=== PATIENT | female | born 1945 | race Two or more races ===

== ENCOUNTER 2020-12-25 16:50 | Emergency (ER) | payer OTHER ==
[~2020-12-25] VITALS: Ht 154.9 cm; Wt 59.4 kg
[2020-12-25] MEDS ORDERED: LEVSIN/SL0.125 MG SL (19:37)
[2020-12-25] MEDS ORDERED: FLAGYL500MG PO (19:37)
[2020-12-25] MEDS ORDERED: PROTONIX40 MG PO (19:37)
[2020-12-25] MEDS ORDERED: CIPRO500 MG PO (19:37)
== END 2020-12-25 21:48 | disposition home or self-care (01) ==
LOC: ER 16:50
DX: K57.32 Diverticulitis of large intestine without perforation or abscess without bleeding (principal); R10.814 Left lower quadrant abdominal tenderness; Z95.0 Presence of cardiac pacemaker

== ENCOUNTER 2021-02-07 06:10 | Day surgery (SDC) | payer OTHER ==
[~2021-02-07 06:10] MED LIST: CIPRO500 MG PO; FLAGYL500MG PO; LEVSIN/SL0.125 MG SL; PROTONIX40 MG PO
== END 2021-02-07 11:30 | disposition home or self-care (01) ==
LOC: AMB-ENDOS 06:10
PROVIDERS: ATTEND Colon & Rectal Surgery
DX: D12.5 Benign neoplasm of sigmoid colon (principal); K64.0 First degree hemorrhoids; Z20.822 Contact with and (suspected) exposure to COVID-19

== ENCOUNTER 2021-07-25 11:00 | Inpatient (IN) | payer OTHER ==
[~2021-07-25] VITALS: Ht 152.4 cm; Wt 54.4 kg
[2021-07-25] MEDS ORDERED: ATORVASTATIN CA10 MG PO (12:14)
[2021-07-25] MEDS ORDERED: AVALIDE 300-121 EACH PO (12:14)
[2021-07-25] MEDS ORDERED: TOPROL XL100 M1 PO (12:14)
[2021-07-25] MEDS ORDERED: NORVASC5 MG PO (12:15)
[2021-07-25] MEDS ORDERED: RESTORIL15 MG PO (12:15)
[2021-07-25] MEDS ORDERED: SYNTHROID112 MCG PO (12:16)
[2021-07-25] MEDS ORDERED: TRANXENE T-TAB7.5 MG PO (12:16)
== END 2021-08-01 16:44 | disposition home or self-care (01) | DRG 330 ==
LOC: SURG 07-29 05:15 → O/R 07-29 05:15 → SURH 07-29 10:24 → SURG 07-29 13:56 → SURH 07-29 18:30 → SURG 08-01 16:44
PROVIDERS: ADMIT Colon & Rectal Surgery; ATTEND Colon & Rectal Surgery
PROC: 0DTN4ZZ Resection of Sigmoid Colon, Percutaneous Endoscopic Approach (ICD-10-PCS; 2021-07-29)
PROC: 0DBP4ZZ Excision of Rectum, Percutaneous Endoscopic Approach (ICD-10-PCS; principal; 2021-07-29 18:30)
DX: K57.20 Diverticulitis of large intestine with perforation and abscess without bleeding (principal); K92.1 Melena; I11.9 Hypertensive heart disease without heart failure; E03.9 Hypothyroidism, unspecified; E78.5 Hyperlipidemia, unspecified; Z95.0 Presence of cardiac pacemaker; G30.0 Alzheimer's disease with early onset; F02.80 Dementia in other diseases classified elsewhere, unspecified severity, without behavioral disturbance, psychotic disturbance, mood disturbance, and anxiety

== ENCOUNTER 2024-08-10 07:33 | Inpatient (IN) | payer OTHER ==
[2024-08-02 10:14] LABS: HEMATOCRIT 43.4 % (36.0-45.00); MEAN CELL VOLUME 89.6 fL (80.00-100.00); MEAN CORPUSCULAR HEMOGLOBIN 30.8 pg (27.00-32.0); MEAN CORPUSCULAR HGB CONC 34.4 g/dl (32.0-36.0); PLATELET COUNT 154 K/uL (150-450); RED BLOOD COUNT 4.85 M/uL (4.00-6.00); RED CELL DISTRIBUTION WIDTH 13.8 % (11.5-14.5)
[2024-08-02 11:04] LABS: URINE APPEARANCE Clear; URINE BILIRRUBIN Negative (NEGATIVE); URINE BLOOD Moderate; URINE COLOR Yellow; URINE GLUCOSE Negative (NEGATIVE); URINE KETONE Negative (NEGATIVE); URINE LEUKOCYTE Small; URINE NITRATE Negative; URINE PROTEIN Negative (NEGATIVE); URINE UROBILINOGEN 0.2 E.U./dl
[2024-08-02 11:15] LABS: URINE EPITHELIAL CELLS 33.3 uL (0.0-38.8); URINE RBC 25.1 uL (0.0-20.8); URINE WBC 39.2 uL (0.0-23.2)
[2024-08-02 11:17] LABS: INR 0.99; PARTIAL THROMBOPLASTIN TIME 26.7 SECONDS (22.0-34.0); PROTHROMBIN TIME 10.8 SECONDS (9.0-11.5)
[2024-08-02 11:31] LABS: URINE CAST 1.03 uL (0.0-1.40)
[2024-08-02 11:33] LABS: URINE CRYSTALS MODERATE /HPF
[2024-08-02 11:40] LABS: BILIRUBIN TOTAL 0.47 mg/dL (0.3-1.2); CALCIUM 11.7 mg/dL (8.5-10.1); CREATININE SERUM 0.68 mg/dL (0.55-1.02); GFR 83.47; GLOBULINA 3.4 G/DL (2.4-3.5); POTASSIUM 4.2 mEq/L (3.5-5.1); TOTAL PROTEIN 7.4 gm/dL (6.4-8.2)
[2024-08-02 11:47] VITALS: BP 127/77
[~2024-08-10] VITALS: Ht 154.9 cm; Wt 66.7 kg
[~2024-08-10 07:33] MED LIST changes: +ATORVASTATIN CA10 MG PO; +AVALIDE 300-121 EACH PO; +BUSPIRONE HCL7.5 MG PO; +NORVASC5 MG PO; +REMERON15 M1 PO; +RESTORIL15 MG PO; +SYNTHROID112 MCG PO; +TOPROL XL100 M1 PO; +TRANXENE T-TAB7.5 MG PO; +ZOLOFT100 MG
[2024-08-10] MEDS ORDERED: DEXAMETHASONE SODIUM PHOSPHATE 4 MG/ML VIAL ONE (10:27)
[2024-08-10] MEDS ORDERED: hydrALAZINE HCL 20 MG VIAL ONE (11:48)
[2024-08-10] MEDS ORDERED: ENALAPRILAT DIHYDRATE 1.25 MG/ML VIAL IV PRN (12:15)
[2024-08-10] MEDS ORDERED: ONDANSETRON HCL 2 MG/ML VIAL IV PRN (12:15)
[2024-08-10] MEDS ORDERED: MORPHINE SULFATE 4 MG/ML VIAL IV ONE ×2 (13:30→15:00)
[2024-08-10] MEDS ORDERED: ACETAMINOPHEN 500 MG GEL..CAP PO SCH (17:00)
[2024-08-10] MEDS ORDERED: TRAMADOL HCL 50 MG TABLET PO SCH (17:00)
[2024-08-10] MEDS ORDERED: CYCLOBENZAPRINE HCL 5 MG TABLET PO SCH (17:00)
[2024-08-10] MEDS ORDERED: BUSPIRONE HCL 15 MG TABLET PO SCH (17:00)
[2024-08-10] MEDS ORDERED: HYDROCHLOROTHIAZIDE 12.5 MG CAPSULE PO SCH (17:00)
[2024-08-10] MEDS ORDERED: IRBESARTAN 300 MG TABLET PO SCH (17:00)
[2024-08-10] MEDS ORDERED: AMLODIPINE BESYLATE 5 MG TABLET PO SCH (17:00)
[2024-08-10] MEDS ORDERED: ATORVASTATIN CALCIUM 10 MG TABLET PO SCH (17:00)
[2024-08-10 18:40] VITALS: BP 123/72; O2SAT 94
[2024-08-10] MEDS ORDERED: MIRTAZAPINE 15 MG PO SCH (21:00)
[2024-08-10] MEDS ORDERED: PANTOPRAZOLE SODIUM 40 MG/VIAL VIAL IV PUSH SCH (21:00)
[2024-08-11] MEDS ORDERED: LEVOTHYROXINE SODIUM 100 MCG TABLET PO SCH (06:00)
[2024-08-11 08:00] VITALS: BP 96/55; O2SAT 96
[2024-08-11] MEDS ORDERED: FLUTICASONE PROPIONATE 50 MCG SPRAY NASAL ONE (08:15)
[2024-08-11] MEDS ORDERED: BENZONATATE 100 MG CAPSULE PO SCH (09:00)
[2024-08-11] MEDS ORDERED: SERTRALINE HCL 100 MG TABLET PO SCH (09:00)
[2024-08-11] MEDS ORDERED: METOPROLOL SUCCINATE 100 MG TAB.SR.24H PO SCH (09:00)
== END 2024-08-11 13:27 | disposition home or self-care (01) | DRG 627 ==
LOC: CIR.AMB 07:33 → O/R 15:42 → SURH 15:51
PROVIDERS: ADMIT Surgery; ATTEND Surgery
PROC: 0GTL0ZZ Resection of Right Superior Parathyroid Gland, Open Approach (ICD-10-PCS; principal; 2024-08-10 09:45)
DX: D35.1 Benign neoplasm of parathyroid gland (principal)